=== PATIENT | male | born 2000 | race Two or more races ===

== ENCOUNTER 2023-08-29 20:24 | Inpatient (IN) | payer MEDICAID ==
[~2023-08-29] VITALS: Ht 190.5 cm; Wt 75.5 kg
[2023-08-29] MEDS ORDERED: HALOPERIDOL 5 MG TABLET PO PRN (23:00)
[2023-08-30] MEDS: LORazepam 2 MG TABLET PO PRN (01:21)
[2023-08-30] MEDS: ZOLPIDEM TARTRATE 10 MG TABLET PO PRN (01:21)
[2023-08-30 01:56] VITALS: BP 151/89; PULSE 76; RESP 18; TEMP 98; O2SAT 98
[2023-08-30 09:07] LABS: HEMOGLOBIN A1C 4.8 % (3.8-5.6)
[2023-08-30 09:30] LABS: CHOL/HDL RATIO 1.7 (4.2-7.3); FREE T4 (FREE THYROXINE) 0.81 ng/dL (0.76-1.46); THYROID STIMULATING HORMONE 2.28 uIU/mL (0.36-3.74)
[2023-08-30] MEDS: SERTRALINE HCL 50 MG TABLET PO SCH (13:13)
[2023-08-30 20:20] VITALS: BP 138/78; PULSE 86; RESP 18; TEMP 97.8; O2SAT 99
[2023-08-31] MEDS ORDERED: MAG HYDROX/ALUMINUM HYD/SIMETH ES 30 ML SUSPENSION UDCUP PO PRN (07:00)
[2023-08-31] MEDS ORDERED: ACETAMINOPHEN 325 MG TABLET PO PRN (07:00)
[2023-08-31] MEDS ORDERED: CloNIDine HCL 0.1 MG TABLET PO PRN (07:00)
[2023-08-31] MEDS ORDERED: ONDANSETRON HCL 4 MG TABLET PO PRN (07:00)
[2023-08-31] MEDS ORDERED: ALBUTEROL SULFATE HFA 90 MCG/PUFF 8 GM INHALER IH PRN (07:00)
[2023-08-31] MEDS ORDERED: LOPERAMIDE HCL 2 MG CAPSULE PO PRN (07:00)
[2023-08-31] MEDS ORDERED: NICOTINE 14 MG/24 HOUR PATCH TD PRN (07:00)
[2023-08-31] MEDS ORDERED: PETROLATUM,WHITE 28 GM JELLY TP PRN (07:00)
[2023-08-31] MEDS ORDERED: MAGNESIUM HYDROXIDE SUSPENSION 30 ML UDCUP PO PRN (07:00)
[2023-08-31] MEDS ORDERED: GuaiFENesin/D-METHORPHAN [SUGAR-FREE] 200-20MG/10 ML SYRUP UDCUP PO PRN (07:00)
[2023-08-31] MEDS ORDERED: DOCUSATE SODIUM 100 MG CAPSULE PO PRN (07:00)
[2023-08-31 08:07] VITALS: BP 132/77; PULSE 55; RESP 18; TEMP 97.6; O2SAT 100
[2023-08-31 08:48] LABS: APPEARANCE,URINE CLEAR (CLEAR); BILIRUBIN,URINE NEGATIVE (NEGATIVE); COLOR,URINE YELLOW (YELLOW); GLUCOSE, URINE (UA) NEGATIVE (NEGATIVE); KETONES,URINE 40-60 mg/dL (NEGATIVE); LEUKOCYTE ESTERASE ,URINE NEGATIVE (NEGATIVE); NITRATE,URINE NEGATIVE (NEGATIVE); OCCULT BLOOD,URINE NEGATIVE (NEGATIVE); PROTEIN,URINE TRACE mg/dL (NEGATIVE); SPECIFIC GRAVITIY, URINE 1.023 (1.003-1.030); UROBILINOGEN,URINE <=1.0 mg/dL (<=1.0)
[2023-08-31 08:53] LABS: ALCOHOL, URINE DRUG SCREEN NEGATIVE (NEGATIVE); AMPHET/METH SCREEN,URINE NEGATIVE (NEGATIVE); BARBITURATE SCREEN, URINE NEGATIVE (NEGATIVE); BENZODIAZEPINES SCREEN,URINE POSITIVE (NEGATIVE); CANNABINOID SCREEN,URINE NEGATIVE (NEGATIVE); COCAINE SCREEN,URINE POSITIVE (NEGATIVE); METHADONE SCREEN, URINE NEGATIVE (NEGATIVE); OPIATE SCREEN,URINE NEGATIVE (NEGATIVE); PHENCYCLIDINE SCREEN,URINE NEGATIVE (NEGATIVE)
[2023-08-31 17:47] VITALS: BP 127/91
[2023-08-31 20:30] VITALS: BP 136/96; PULSE 86; RESP 19; TEMP 97.8; O2SAT 99
[2023-09-01 00:05] VITALS: BP 144/94; PULSE 94; RESP 18; TEMP 97.7; O2SAT 99
[2023-09-01 09:11] VITALS: BP 119/90; PULSE 83; RESP 18; TEMP 98; O2SAT 100
[2023-09-01 09:32] LABS: HEMOGLOBIN A1C 4.7 % (3.8-5.6)
[2023-09-01 09:45] LABS: THYROID STIMULATING HORMONE 1.94 uIU/mL (0.36-3.74)
[2023-09-01 20:02] VITALS: BP 118/87; PULSE 81; RESP 18; TEMP 97.9; O2SAT 100
[2023-09-02 08:39] LABS: CHOL/HDL RATIO 2.4 (4.2-7.3)
[2023-09-02 09:01] VITALS: BP 133/85; PULSE 89; RESP 18; TEMP 97.8; O2SAT 99
[2023-09-02 21:22] VITALS: BP 128/84; PULSE 71; RESP 17; TEMP 97.5; O2SAT 99
[2023-09-03 08:05] VITALS: BP 129/98; PULSE 91; RESP 18; TEMP 97.4; O2SAT 98
[2023-09-03 20:02] VITALS: BP 126/92; PULSE 56; RESP 18; TEMP 97.4; O2SAT 100
[2023-09-04 09:04] LABS: APPEARANCE,URINE CLEAR (CLEAR); BILIRUBIN,URINE NEGATIVE (NEGATIVE); COLOR,URINE YELLOW (YELLOW); GLUCOSE, URINE (UA) NEGATIVE (NEGATIVE); KETONES,URINE NEGATIVE (NEGATIVE); LEUKOCYTE ESTERASE ,URINE NEGATIVE (NEGATIVE); NITRATE,URINE NEGATIVE (NEGATIVE); OCCULT BLOOD,URINE NEGATIVE (NEGATIVE); PH,URINE 6.5 (5.0-8.0); PH,URINE DRUG SCREEN 6.5 (5.0-8.0); PROTEIN,URINE NEGATIVE (NEGATIVE); SPECIFIC GRAVITIY, URINE 1.012 (1.003-1.030); UROBILINOGEN,URINE <=1.0 mg/dL (<=1.0)
[2023-09-04 09:13] LABS: ALCOHOL, URINE DRUG SCREEN NEGATIVE (NEGATIVE); AMPHET/METH SCREEN,URINE NEGATIVE (NEGATIVE); BARBITURATE SCREEN, URINE NEGATIVE (NEGATIVE); BENZODIAZEPINES SCREEN,URINE POSITIVE (NEGATIVE); CANNABINOID SCREEN,URINE NEGATIVE (NEGATIVE); COCAINE SCREEN,URINE NEGATIVE (NEGATIVE); METHADONE SCREEN, URINE NEGATIVE (NEGATIVE); OPIATE SCREEN,URINE NEGATIVE (NEGATIVE); PHENCYCLIDINE SCREEN,URINE NEGATIVE (NEGATIVE)
[2023-09-04 09:26] VITALS: BP 123/85; PULSE 67; RESP 17; TEMP 97.9; O2SAT 100
[2023-09-04 21:22] VITALS: BP 124/79; PULSE 70; RESP 17; TEMP 98.1; O2SAT 100
[2023-09-05 09:41] VITALS: BP 143/93; PULSE 71; RESP 18; TEMP 97.9; O2SAT 100
[2023-09-05] MEDS: AmLODIPine BESYLATE 2.5 MG TABLET PO SCH (09:45)
[2023-09-05 21:00] VITALS: BP 148/99; PULSE 99; RESP 18; TEMP 98.9; O2SAT 98
[2023-09-06 09:31] VITALS: BP 143/95; PULSE 126; RESP 17; TEMP 101.9; O2SAT 97
[2023-09-06] MEDS: IBUPROFEN 400 MG TABLET PO PRN (09:31)
[2023-09-06 09:53] VITALS: BP 142/95; PULSE 126; RESP 17; TEMP 101; O2SAT 97
[2023-09-06 10:50] VITALS: TEMP 100.1
[2023-09-06 20:11] LABS: GLUCOMETER DEV NAME(LOC) POC.BV; POC SARS-COV2 AG, FIA NEGATIVE (NEGATIVE)
[2023-09-08] MEDS ORDERED: OSEL75 PO (10:13)
[2023-09-08] MEDS ORDERED: ACET-2247 PO (13:24)
[2023-09-08] MEDS ORDERED: FLUD.1 PO (13:25)
[2023-09-08] MEDS ORDERED: MAGN-169 PO (13:26)
== END 2023-09-06 11:15 | disposition short-term general hospital (02) | DRG 751 ==
LOC: B2S 08-30 00:27
PROVIDERS: ADMIT Psychiatry & Neurology Psychiatry; ATTEND Psychiatry & Neurology Psychiatry
PROC: GZHZZZZ Group Psychotherapy (ICD-10-PCS; principal; 2023-08-30)
DX: F33.2 Major depressive disorder, recurrent severe without psychotic features (principal); R45.851 Suicidal ideations; F14.90 Cocaine use, unspecified, uncomplicated; F10.20 Alcohol dependence, uncomplicated; Z20.822 Contact with and (suspected) exposure to COVID-19; F41.1 Generalized anxiety disorder; T42.4X2A Poisoning by benzodiazepines, intentional self-harm, initial encounter; Z79.899 Other long term (current) drug therapy; Z91.010 Allergy to peanuts; Y92.89 Other specified places as the place of occurrence of the external cause
CPT/HCPCS: 80061; 80307; 81003; 83036; 84439; 84443